=== PATIENT | female | born 1940 | race African-American/Black ===

== ENCOUNTER 2016-12-14 21:19 | Observation (INO) | payer MEDICARE ==
[~2016-12-14 21:19] MED LIST: ASPI81TA82 PO; CILO50TA PO; GLYB5TAB3 PO; LISI-363 PO; METO50TA PO; SIMV1TAB76 PO
[2016-12-14 21:24] VITALS: BP 109/55; PULSE 96; RESP 16; TEMP 96.8; O2SAT 97
--- NOTE | 2016-12-14 21:28 | PD ---
Physical Exam Date Seen by Provider: Dec 14, 2016 Time Seen by Provider: 21:26 Narrative 76 yo female here for evaluation of weakness and abdominal pain. Had a chicken sandwich early today and then developed some discomfort. No N/V. Feeling tired. Passing a lot of gas. No diarrhea. Pain is 8/10. Vitals are stable. Awaiting bed placement. Data Data Last Documented VS Vital Signs Date Time Temp Pulse Resp B/P Pulse Ox O2 Delivery O2 Flow Rate FiO2 12/14/16 21:24 96.8 96 16 109/55 97 Room Air [facility] Medical Record Reviewed: Yes Supervised Visit with TRELL: No Vikash Burr Dec 14, 2016 21:28
[2016-12-14 21:37] VITALS: BP 102/54; PULSE 97; RESP 20; O2SAT 100
[2016-12-14] MEDS ORDERED: ASPI81CH CHEW (21:38)
[2016-12-14] MEDS ORDERED: ZOFR8TAB PO (21:39)
[2016-12-14] MEDS ORDERED: RANI150T PO (21:40)
[2016-12-14] MEDS ORDERED: LIDO1SOL8 SWISH-SWAL (21:40)
[2016-12-14] MEDS ORDERED: GLIM1TAB PO (21:40)
[2016-12-14] MEDS ORDERED: METO50TA PO (21:41)
[2016-12-14] MEDS ORDERED: LISI10TA3 PO (21:41)
[2016-12-14] MEDS ORDERED: OMEG300C (21:41)
[2016-12-14] MEDS ORDERED: SIMV10TA PO (21:41)
[2016-12-14] MEDS ORDERED: SODIUM CHLOR 0.9% 1000 ML INJ 1,000 ML IV SCH (21:42)
[2016-12-14] MEDS ORDERED: DICYCLOMINE HCL 20 MG/2 ML VIAL IM ONE (21:45)
[2016-12-14] MEDS ORDERED: PROCHLORPERAZINE INJ 10 MG/2 ML VIAL IV PUSH ONE (21:45)
[2016-12-14] MEDS ORDERED: SODIUM CHLORIDE 0.9% FLUSH 10 ML FLUSH IV FLUSH PRN (21:45)
--- NOTE | 2016-12-14 22:10 | PD ---
HPI Chief Complaint: Abdominal Pain Time Seen by Provider: 21:35 Travel History International Travel<30 days: No Contact w/Intl Traveler<30days: No Traveled to known affect area: No History of Present Illness HPI Patient is a 76-year-old female presenting to the emergency department evaluation of abdominal pain. Patient states it started this afternoon after she ate chicken salad sandwich and some rotisserie chicken. She states the pain is in her lower abdomen as well as her epigastric region, she states it feels crampy, gassy and bloated. She also reports nausea and has vomited 8-9 times per her report. She reported that she took 2 laxatives prior to coming to the emergency department. She reports burping, she has a past medical history significant for diabetes, hypertension, GERD. Patient was seen and evaluated for healthcare this afternoon, she was diagnosed with gastroenteritis. She was prescribed ranitidine, GI cocktail, Zofran. She came to the emergency department because she has not improved. PFSH Past Medical History Arthritis: Yes Chest Pain: Yes Diabetes: Yes Patient Takes Glucophage: No Diminished Hearing: No GERD: Yes Immunizations Current: Yes Tetanus Vaccination: Unknown Influenza Vaccination: Yes ?: Not Past Surgical History Cholecystectomy: Yes Social History Alcohol Use: Yes (3-4 DRINKS A WEEK) Tobacco Use: No Substance Use: No Allergies-Medications (Allergen,Severity, Reaction): Coded Allergies: Sulfamethoxazole (Verified Allergy, Unknown, 12/14/16) Reported Meds & Prescriptions Reported Meds & Active Scripts Active Reported Simvastatin 10 Mg Tab 10 Mg PO DAILY Metoprolol Tartrate 50 Mg Tab 50 Mg PO DAILY Lisinopril 10 Mg Tab 10 Mg PO DAILY [place]-3 Krill Oil 300 mg (Krill Oil) 1 Cap Cap Glimepiride 1 Mg Tab 1 Mg PO DAILY Take with breakfast or first main meal Lidocaine Viscous Liq 2 % Liqd 5 Ml SWISH-SWAL DIRECTED PRN Ranitidine (Ranitidine HCl) 150 Mg Tab 150 Mg PO DAILY Zofran (Ondansetron HCl) 8 Mg Tab 8 Mg PO TID Aspirin 81 Mg Chew 81 Mg CHEW DAILY Review of Systems Except as stated in HPI: all other systems reviewed are Neg Gastrointestinal: Positive: Nausea, Vomiting, Abdominal Pain, Indigestion Physical Exam Narrative GENERAL: Obese, well-developed, alert female. Appears uncomfortable, in no acute distress. SKIN: Warm and dry. HEAD: Atraumatic. Normocephalic. EYES: Pupils equal and round. No scleral icterus. No injection or drainage. ENT: No nasal bleeding or discharge. Mucous membranes pink and moist. NECK: Trachea midline. No JVD. CARDIOVASCULAR: Regular rate and rhythm. RESPIRATORY: No accessory muscle use. Clear to auscultation. Breath sounds equal bilaterally. GASTROINTESTINAL: Abdomen soft, tender to palpation epigastric and right and left lower quadrants, nondistended. Hepatic and splenic margins not palpable. , No rebound, positive guarding, positive bowel sounds. MUSCULOSKELETAL: Extremities without clubbing, cyanosis, or edema. No obvious deformities. NEUROLOGICAL: Awake and alert. No obvious cranial nerve deficits. Motor grossly within normal limits. Five out of 5 muscle strength in the arms and legs. Normal speech. PSYCHIATRIC: Appropriate mood and affect; insight and judgment normal. Data Data Last Documented VS Vital Signs Date Time Temp Pulse Resp B/P Pulse Ox O2 Delivery O2 Flow Rate FiO2 12/14/16 21:37 97 20 102/54 100 Room Air 12/14/16 21:24 96.8 Orders Complete Blood Count With Diff (12/14/16 21:42) Comprehensive Metabolic Panel (12/14/16 21:42) Lipase (12/14/16 21:42) Lactic Acid (12/14/16 21:42) Ct Abd/Pel W/O Iv Contrast (12/14/16 21:42) Iv Access Insert/Monitor (12/14/16 21:42) Ecg Monitoring (12/14/16 21:42) Oximetry (12/14/16 21:42) NPO (12/14/16 21:42) Sodium Chlor 0.9% 1000 Ml Inj (Ns 1000 M (12/14/16 21:42) Sodium Chloride 0.9% Flush (Ns Flush) (12/14/16 21:45) Dicyclomine Inj (Bentyl Inj) (12/14/16 21:45) Prochlorperazine Inj (Compazine Inj) (12/14/16 21:45) Sodium Chlor 0.9% 1000 Ml Inj (Ns 1000 M (12/14/16 22:45) Ondansetron Inj (Zofran Inj) (12/14/16 23:45) Ondansetron Inj (Zofran Inj) (12/14/16 23:43) Blood Culture (12/14/16 23:44) Ciprofloxacin 400 Mg Premix (Cipro 400 M (12/14/16 23:45) Metronidazole 500 Mg Inj (Flagyl 500 Mg (12/14/16 23:45) Admit Order (Ed Use Only) (12/15/16 00:17) Labs Laboratory Tests Test 12/14/16 12/14/16 21:50 21:58 White Blood Count 12.9 TH/MM3 Red Blood Count 3.85 MIL/MM3 Hemoglobin 11.7 GM/DL Hematocrit 35.2 % Mean Corpuscular Volume 91.4 FL Mean Corpuscular Hemoglobin 30.4 PG Mean Corpuscular Hemoglobin 33.3 % Concent Red Cell Distribution Width 13.9 % Platelet Count 290 TH/MM3 Mean Platelet Volume 9.0 FL Neutrophils (%) (Auto) 76.6 % Lymphocytes (%) (Auto) 15.1 % Monocytes (%) (Auto) 7.8 % Eosinophils (%) (Auto) 0.2 % Basophils (%) (Auto) 0.3 % Neutrophils # (Auto) 9.8 TH/MM3 Lymphocytes # (Auto) 1.9 TH/MM3 Monocytes # (Auto) 1.0 TH/MM3 Eosinophils # (Auto) 0.0 TH/MM3 Basophils # (Auto) 0.0 TH/MM3 CBC Comment DIFF FINAL Differential Comment Sodium Level 137 MEQ/L Potassium Level 3.7 MEQ/L Chloride Level 97 MEQ/L Carbon Dioxide Level 29.6 MEQ/L Anion Gap 10 MEQ/L Blood Urea Nitrogen 34 MG/DL Creatinine 2.35 MG/DL Estimat Glomerular Filtration 24 ML/MIN Rate Random Glucose 203 MG/DL Calcium Level 11.7 MG/DL Protein Corrected Calcium 11.3 MG/DL Total Bilirubin 0.6 MG/DL Aspartate Amino Transf 23 U/L (AST/SGOT) Alanine Aminotransferase 20 U/L (ALT/SGPT) Alkaline Phosphatase 61 U/L Total Protein 7.7 GM/DL Albumin 4.1 GM/DL Lipase 118 U/L Lactic Acid Level 3.5 mmol/L MDM Medical Decision Making Medical Screen Exam Complete: Yes Emergency Medical Condition: Yes Medical Record Reviewed: Yes Interpretation(s) Vital Signs Date Time Temp Pulse Resp B/P Pulse Ox O2 Delivery O2 Flow Rate FiO2 12/14/16 21:37 97 20 102/54 100 Room Air 12/14/16 21:24 96.8 96 16 109/55 97 Room Air Differential Diagnosis Gastroenteritis versus small bowel obstruction versus pancreatitis versus diverticulitis versus other Narrative Course Patient is a 76-year-old female that presented for evaluation abdominal pain, nausea, vomiting that started after eating lunch today. Patient's vital signs are stable, she did vomit once in the emergency department. Emesis was green. Labs and imaging ordered and pending. IV access established. Patient given Protonix, Bentyl, IV fluids, Compazine. CT scan abdomen and pelvis shows scattered air-fluid levels and small bowel, occasional loops of colon with scattered diverticuli throughout the colon. No free air obstruction is seen, no evidence of an inflammatory process. There is trace ascites. Small hiatal hernia.. Calcification in the left breast. CBC with an elevated white count 12.9, likely inflammatory response. Lactic acid 3.5, patient has been given 1 L of IV fluids, a second liter has been ordered. Care of patient transferred to my attending physician at the end of my shift. She will determine patient's disposition. Juliann Salas [facility] Dec 14, 2016 22:10
--- NOTE | 2016-12-14 22:23 | RADRPT ---
EXAM DATE/TIME: 12/14/2016 22:06 [place] COMPARISON: No previous studies available for comparison. INDICATIONS : Lower abdominal pain. ORAL CONTRAST: No oral contrast ingested. RADIATION DOSE: 9.96 CTDIvol (mGy) MEDICAL HISTORY : Diabetes. SURGICAL HISTORY : Cholecystectomy. ENCOUNTER: Initial ACUITY: 1 day PAIN SCALE: 8/10 LOCATION: Bilateral lower quadrant TECHNIQUE: Volumetric scanning of the abdomen and pelvis was performed. Using automated exposure control and ad justment of the mA and/or kV according to patient size, radiation dose was kept as low as reasonably achievable to obtain optimal diagnostic quality images. DICOM format image data is available electro nically for review and comparison. FINDINGS: LOWER LUNGS: The visualized lower lungs are clear. LIVER: Trace ascites is evident with surgical clips in the gallbladder fossa. SPLEEN: Normal size without lesion. PANCREAS: Atrophic without mass KIDNEYS: Normal in size and shape. There is no mass, stone, or hydronephrosis. ADRENAL GLANDS: Within normal limits. VASCULAR: Moderate vascular calcifications are noted. BOWEL/MESENTERY: Small hiatal hernia. There is scattered air-fluid levels throughout both large and small bowel witho ut asymmetrical dilatation. Diverticula are seen throughout the entire length of the colon. ABDOMINAL WALL: Within normal limits. RETROPERITONEUM: There is no lymphadenopathy. BLADDER: No wall thickening or mass. REPRODUCTIVE: Fibroid uterine or noted with artifact from total hip INGUINAL: There is no lymphadenopathy or hernia. MUSCULOSKELETAL: Total hip on the left, degenerative changes on the right. CONCLUSION: Scattered air-fluid levels in small bowel occasional loops of colon with scattered diverticuli throug hout the colon. I don't see free air or obstruction. I don't see evidence for an inflammatory proce ss. Trace ascites is noted. Small hiatal hernia is evident. Calcification seen in the left breast. Mark Evans MD FACR on December 14, 2016 at 22:15 Board Certified Radiologist. This report was verified electronically.
[2016-12-14 22:32] LABS: AUTOMATED NEUTROPHIL # 9.8 TH/MM3 (1.8-7.7); BASOPHIL % 0.3 % (0.0-2.0); EOSINOPHIL % 0.2 % (0.0-4.0); HEMATOCRIT 35.2 % (35.0-46.0); HEMO FLAGS DIFF FINAL; LYMPH % 15.1 % (9.0-44.0); LYMPHOCYTE # 1.9 TH/MM3 (1.0-4.8); MEAN CELL VOLUME 91.4 FL (80.0-100.0); MEAN CORPUSCULAR HEMOGLOBIN 30.4 PG (27.0-34.0); MEAN CORPUSCULAR HGB CONC 33.3 % (32.0-36.0); MONO % 7.8 % (0.0-8.0); NEUT % 76.6 % (16.0-70.0); PLATELET COUNT 290 TH/MM3 (150-450); RED BLOOD COUNT 3.85 MIL/MM3 (4.00-5.30); RED CELL DISTRIBUTION WIDTH 13.9 % (11.6-17.2); WHITE BLOOD COUNT 12.9 TH/MM3 (4.0-11.0)
[2016-12-14] MEDS ORDERED: SODIUM CHLOR 0.9% 1000 ML INJ 1,000 ML IV ONE (22:45)
[2016-12-14 23:00] LABS: BICARBONATE 29.6 MEQ/L (21.0-32.0); CALCIUM-PROTEIN CORRECTED 11.3 MG/DL (8.5-10.1); POTASSIUM 3.7 MEQ/L (3.5-5.1); TOTAL BILIRUBIN ADULT 0.6 MG/DL (0.2-1.0)
[2016-12-14] MEDS ORDERED: ONDANSETRON HCL 4 MG/2 ML VIAL ONE (23:43)
[2016-12-14] MEDS ORDERED: ONDANSETRON HCL 4 MG/2 ML VIAL IV ONE (23:45)
[2016-12-14] MEDS ORDERED: CIPROFLOXACIN 400 MG PREMIX 200 ML IV ONE (23:45)
[2016-12-14] MEDS ORDERED: metroNIDAZOLE 500 MG INJ 100 ML IV ONE (23:45)
[2016-12-15] VITALS (8 sets, daily range): BP systolic 98–171; BP diastolic 51–84; PULSE 77–108; RESP 16–20; TEMP 98.1–100.1; O2SAT 95–100
[2016-12-15] MEDS ORDERED: PANTOPRAZOLE SODIUM 40 MG VIAL IV PUSH ONE (01:30)
--- NOTE | 2016-12-15 05:04 | PD ---
Data Data Last Documented VS Vital Signs Date Time Temp Pulse Resp B/P Pulse Ox O2 Delivery O2 Flow Rate FiO2 12/14/16 21:37 97 20 102/54 100 Room Air 12/14/16 21:24 96.8 Orders Complete Blood Count With Diff (12/14/16 21:42) Comprehensive Metabolic Panel (12/14/16 21:42) Lipase (12/14/16 21:42) Lactic Acid (12/14/16 21:42) Ct Abd/Pel W/O Iv Contrast (12/14/16 21:42) Iv Access Insert/Monitor (12/14/16 21:42) Ecg Monitoring (12/14/16 21:42) Oximetry (12/14/16 21:42) NPO (12/14/16 21:42) Sodium Chlor 0.9% 1000 Ml Inj (Ns 1000 M (12/14/16 21:42) Sodium Chloride 0.9% Flush (Ns Flush) (12/14/16 21:45) Dicyclomine Inj (Bentyl Inj) (12/14/16 21:45) Prochlorperazine Inj (Compazine Inj) (12/14/16 21:45) Sodium Chlor 0.9% 1000 Ml Inj (Ns 1000 M (12/14/16 22:45) Ondansetron Inj (Zofran Inj) (12/14/16 23:45) Ondansetron Inj (Zofran Inj) (12/14/16 23:43) Blood Culture (12/14/16 23:44) Ciprofloxacin 400 Mg Premix (Cipro 400 M (12/14/16 23:45) Metronidazole 500 Mg Inj (Flagyl 500 Mg (12/14/16 23:45) Admit Order (Ed Use Only) (12/15/16 00:17) Labs Laboratory Tests Test 12/14/16 12/14/16 21:50 21:58 White Blood Count 12.9 TH/MM3 Red Blood Count 3.85 MIL/MM3 Hemoglobin 11.7 GM/DL Hematocrit 35.2 % Mean Corpuscular Volume 91.4 FL Mean Corpuscular Hemoglobin 30.4 PG Mean Corpuscular Hemoglobin 33.3 % Concent Red Cell Distribution Width 13.9 % Platelet Count 290 TH/MM3 Mean Platelet Volume 9.0 FL Neutrophils (%) (Auto) 76.6 % Lymphocytes (%) (Auto) 15.1 % Monocytes (%) (Auto) 7.8 % Eosinophils (%) (Auto) 0.2 % Basophils (%) (Auto) 0.3 % Neutrophils # (Auto) 9.8 TH/MM3 Lymphocytes # (Auto) 1.9 TH/MM3 Monocytes # (Auto) 1.0 TH/MM3 Eosinophils # (Auto) 0.0 TH/MM3 Basophils # (Auto) 0.0 TH/MM3 CBC Comment DIFF FINAL Differential Comment Sodium Level 137 MEQ/L Potassium Level 3.7 MEQ/L Chloride Level 97 MEQ/L Carbon Dioxide Level 29.6 MEQ/L Anion Gap 10 MEQ/L Blood Urea Nitrogen 34 MG/DL Creatinine 2.35 MG/DL Estimat Glomerular Filtration 24 ML/MIN Rate Random Glucose 203 MG/DL Calcium Level 11.7 MG/DL Protein Corrected Calcium 11.3 MG/DL Total Bilirubin 0.6 MG/DL Aspartate Amino Transf 23 U/L (AST/SGOT) Alanine Aminotransferase 20 U/L (ALT/SGPT) Alkaline Phosphatase 61 U/L Total Protein 7.7 GM/DL Albumin 4.1 GM/DL Lipase 118 U/L Lactic Acid Level 3.5 mmol/L MDM Supervised Visit with TRELL: Yes Narrative Course The history, exam, and medical decision-making in the associated midlevel provider note were completed with my assistance. I reviewed and agree with the findings presented. I attest that I had a [id number] encounter with the patient on the same day, and personally performed and documented my assessment and findings in the medical record. *My assessment and Findings: This is a 76-year-old female who presents to the emergency department with nausea vomiting and diarrhea. Here in the emergency department she had several episodes of vomiting despite Compazine and Zofran. She is placed on a monitor and an IV was established. Labs demonstrate a mild leukocytosis. Patient has evidence of acute kidney injury with a lactic acid of 3.5. She was given a dose of ciprofloxacin and Flagyl in the setting of possible sepsis. CT abdomen and pelvis was obtained which demonstrates air fluid levels in the small bowel. Patient will be admitted in the setting of likely gastroenteritis and dehydration with acute kidney injury. Diagnosis Primary Impression: Acute kidney injury Admitting Information Admitting Physician Requests: Admit Lorri Givens MD Dec 15, 2016 05:04
[2016-12-15] MEDS ORDERED: MORPHINE SULFATE 4 MG/ML INJ IV PUSH ONE (06:00)
[2016-12-15] MEDS ORDERED: MORPHINE SULFATE 8 MG/ML INJ ONE (06:05)
[2016-12-15] MEDS ORDERED: MORPHINE SULFATE 8 MG/ML INJ IV PUSH ONE (06:45)
[2016-12-15] MEDS ORDERED: ONDANSETRON HCL 4 MG/2 ML VIAL IV PUSH PRN (11:45)
[2016-12-15] MEDS: SODIUM CHLOR 0.9% 1000 ML INJ 1,000 ML IV SCH (13:32)
--- NOTE | 2016-12-15 15:51 | HHI.HP ---
HPI Service CP Hospitalists Primary Care Physician Matt Dover Admission Diagnosis gastroenteritis Chief Complaint: abd cramps vomiting Travel History International Travel<30 Days: No Contact w/Intl Traveler <30 Da: No Traveled to Known Affected Are: No History of Present Illness Pt with ckd 3 presented with abdomen cramps and vomiting soon after eating chicken salad. She was having persistent sx's and admitted for observation. CT imaging revealed some changes consistent with gasteroenteritis. When I saw her she was already improving and contemplated going home at this time. She and decided to be observed overnight then f/u with pcp. Review of Systems Other abd cramps vomiting Past Family Social History Past Medical History ckd3 hyperlipidemia htn dm 2 diverticulosis/ diverticulitis hx bowel resection/ostomy then takedown cholecystectomy Reported Medications Simvastatin 10 Mg Tab 10 Mg PO DAILY Metoprolol Tartrate 50 Mg Tab 50 Mg PO DAILY Lisinopril 10 Mg Tab 10 Mg PO DAILY [place]-3 Krill Oil 300 mg (Krill Oil) 1 Cap Cap Glimepiride 1 Mg Tab 1 Mg PO DAILY Take with breakfast or first main meal Lidocaine Viscous Liq 2 % Liqd 5 Ml SWISH-SWAL DIRECTED PRN Ranitidine (Ranitidine HCl) 150 Mg Tab 150 Mg PO DAILY Aspirin 81 Mg Chew 81 Mg CHEW DAILY Allergies: Coded Allergies: Sulfamethoxazole (Verified Allergy, Unknown, 12/14/16) Family History nc Social History no etoh/tob Physical Exam Vital Signs nad heart reg lung cta abd s/nt/nabs ext no edema Vital Signs Date Time Temp Pulse Resp B/P Pulse Ox O2 Delivery O2 Flow Rate FiO2 12/15/16 15:37 98.5 104 18 118/58 96 12/15/16 12:02 100.1 105 18 116/58 95 12/15/16 10:44 108 20 171/84 12/15/16 06:00 83 16 126/71 98 Room Air 12/15/16 02:25 16 12/15/16 02:25 85 16 132/72 100 Room Air 12/14/16 21:37 97 20 102/54 100 Room Air 12/14/16 21:24 96.8 96 16 109/55 97 Room Air Laboratory Laboratory Tests Test 12/14/16 12/14/16 12/15/16 21:50 21:58 11:30 White Blood Count 12.9 Red Blood Count 3.85 Hemoglobin 11.7 Hematocrit 35.2 Mean Corpuscular Volume 91.4 Mean Corpuscular Hemoglobin 30.4 Mean Corpuscular Hemoglobin 33.3 Concent Red Cell Distribution Width 13.9 Platelet Count 290 Mean Platelet Volume 9.0 Neutrophils (%) (Auto) 76.6 Lymphocytes (%) (Auto) 15.1 Monocytes (%) (Auto) 7.8 Eosinophils (%) (Auto) 0.2 Basophils (%) (Auto) 0.3 Neutrophils # (Auto) 9.8 Lymphocytes # (Auto) 1.9 Monocytes # (Auto) 1.0 Eosinophils # (Auto) 0.0 Basophils # (Auto) 0.0 CBC Comment DIFF FINAL Differential Comment Sodium Level 137 Potassium Level 3.7 Chloride Level 97 Carbon Dioxide Level 29.6 Anion Gap 10 Blood Urea Nitrogen 34 Creatinine 2.35 Estimat Glomerular Filtration 24 Rate Random Glucose 203 Calcium Level 11.7 Protein Corrected Calcium 11.3 Total Bilirubin 0.6 Aspartate Amino Transf 23 (AST/SGOT) Alanine Aminotransferase 20 (ALT/SGPT) Alkaline Phosphatase 61 Total Protein 7.7 Albumin 4.1 Lipase 118 Lactic Acid Level 3.5 2.9 Date/Time Procedure Status Source Growth 12/15/16 01:25 Aerobic Blood Culture Received Blood Peripheral Pending 12/15/16 01:25 Anaerobic Blood Culture Received Blood Peripheral Pending Result Diagram: 12/14/16214912/14/162149 Assessment and Plan Problem List: (1) Gastroenteritis Status: Acute Plan: Pt presented with acute abdomen cramps and vomiting. Started after eating chicken salad. Her sx's are improving and felt most likely to be gastroenteritis and some dehydration She is already improving but decided to stay for observation overnight. cont ivf advance diet d/c with prn zofran in AM and pcp f/u (2) CKD (chronic kidney disease), stage III Status: Chronic (3) HTN (hypertension) Status: Chronic (4) DM2 (diabetes mellitus, type 2) Status: Chronic Martell Black MD Dec 15, 2016 15:51
[2016-12-15 17:23] LABS: ALT (GPT) 17 U/L (10-53); ANION GAP 13 MEQ/L (5-15); AST (GOT) 20 U/L (15-37); BICARBONATE 27.6 MEQ/L (21.0-32.0); BLOOD UREA NITROGEN 28 MG/DL (7-18); CHLORIDE 102 MEQ/L (98-107); GLOMERULAR FILTRATION RATE 28 ML/MIN (>89); POTASSIUM 4.3 MEQ/L (3.5-5.1); SODIUM (NA) 143 MEQ/L (136-145)
[2016-12-15 17:30] LABS: ALKALINE PHOSPHATASE 48 U/L (45-117); TOTAL BILIRUBIN ADULT 0.5 MG/DL (0.2-1.0)
[2016-12-15] MEDS: MORPHINE SULFATE 8 MG/ML INJ IV PUSH PRN (20:55)
[2016-12-16] MEDS: SODIUM CHLOR 0.9% 1000 ML INJ 1,000 ML IV SCH (03:47)
[2016-12-16 04:06] VITALS: BP 102/52; PULSE 99; RESP 18; TEMP 98.1; O2SAT 92
[2016-12-16 07:32] LABS: BASOPHIL % 0.2 % (0.0-2.0); EOSINOPHIL % 0.1 % (0.0-4.0); HEMATOCRIT 29.7 % (35.0-46.0); HEMO FLAGS DIFF FINAL; LYMPHOCYTE # 1.3 TH/MM3 (1.0-4.8); MEAN CELL VOLUME 93.5 FL (80.0-100.0); MEAN CORPUSCULAR HEMOGLOBIN 30.4 PG (27.0-34.0); MEAN CORPUSCULAR HGB CONC 32.5 % (32.0-36.0); MONO % 10.5 % (0.0-8.0); NEUT % 73.2 % (16.0-70.0); PLATELET COUNT 218 TH/MM3 (150-450); RED BLOOD COUNT 3.17 MIL/MM3 (4.00-5.30); RED CELL DISTRIBUTION WIDTH 14.2 % (11.6-17.2); WHITE BLOOD COUNT 8.3 TH/MM3 (4.0-11.0)
[2016-12-16 07:40] VITALS: BP 111/53; PULSE 97; RESP 18; TEMP 98.2; O2SAT 93
[2016-12-16 07:56] LABS: BICARBONATE 28.8 MEQ/L (21.0-32.0); POTASSIUM 3.5 MEQ/L (3.5-5.1)
[2016-12-16] MEDS: MORPHINE SULFATE 8 MG/ML INJ IV PUSH PRN (10:44)
[2016-12-16 11:21] VITALS: BP 136/60; PULSE 97; RESP 18; TEMP 98.9; O2SAT 94
--- NOTE | 2016-12-16 14:41 | HHI.DCPOC ---
Discharge Care Plan Diagnosis: (1) Gastroenteritis Goals to Promote Your Health * To prevent worsening of your condition and complications * To maintain your health at the optimal level Directions to Meet Your Goals Take your medications as prescribed Follow your dietary instruction Follow activity as directed Keep your appointments as scheduled Take your immunizations and boosters as scheduled If your symptoms worsen call your PCP, if no PCP go to Urgent Care Center or Emergency Room Smoking is Dangerous to Your Health. Avoid second hand smoke Call the 24-hour hour crisis hotline for domestic abuse at Martell Black MD Dec 16, 2016 14:41
--- NOTE | 2016-12-16 14:41 | HHI.PR ---
Subjective Remarks vomited early this AM but wants to go home now. feels better Objective Vitals heart reg lung cta abd s/nt ext no edema Vital Signs Date Time Temp Pulse Resp B/P Pulse Ox O2 Delivery O2 Flow Rate FiO2 12/16/16 11:21 98.9 97 18 136/60 94 12/16/16 07:40 98.2 97 18 111/53 93 12/16/16 04:06 98.1 99 18 102/52 92 12/15/16 23:36 98.1 77 18 103/54 98 12/15/16 21:00 20 12/15/16 20:40 111/56 12/15/16 19:28 98.1 104 20 113/57 95 12/15/16 15:37 98.5 104 18 118/58 96 12/15/16 12/15/16 12/16/16 14:59 22:59 06:59 Intake Total 168 ml 1600 ml Output Total 150 ml Balance 168 ml 1450 ml Intake Oral 650 ml IV Total 168 ml 950 ml Output Emesis 150 ml # Voids 1 Result Diagram: 12/16/16 0640 12/16/16 0640 A/P Problem List: (1) Gastroenteritis Status: Acute Plan: acute gastroenteritis improving Pt eager for d/c she was instructed to drink plenty of fluids and f/u closely with pcp should her sx's return prn zofran given (2) HTN (hypertension) Status: Chronic (3) CKD (chronic kidney disease), stage III Status: Chronic (4) DM2 (diabetes mellitus, type 2) Status: Chronic Martell Black MD Dec 16, 2016 14:41
[2016-12-16] MEDS ORDERED: ZOFR4TAB3 SL (14:42)
== END 2016-12-16 16:31 | disposition home or self-care (01) ==
LOC: NEPE 21:19 → NEDA 12-15 00:18 → INTOOBSV 12-15 00:18 → NEDH 12-15 04:36 → NEPFCDU 12-15 11:37
PROVIDERS: ADMIT Hospitalist; ATTEND Hospitalist
DX: K52.9 Noninfective gastroenteritis and colitis, unspecified (principal); N17.9 Acute kidney failure, unspecified; E86.0 Dehydration; K44.9 Diaphragmatic hernia without obstruction or gangrene; I12.9 Hypertensive chronic kidney disease with stage 1 through stage 4 chronic kidney disease, or unspecified chronic kidney disease; N18.6 End stage renal disease; E11.22 Type 2 diabetes mellitus with diabetic chronic kidney disease; E78.5 Hyperlipidemia, unspecified; K21.9 Gastro-esophageal reflux disease without esophagitis; M19.90 Unspecified osteoarthritis, unspecified site; Z79.899 Other long term (current) drug therapy; Z79.82 Long term (current) use of aspirin
CPT/HCPCS: 74176; 80048; 80053; 83605; 83690; 85025; 87040; 96361; 96372; 96374; 96375; 99285; C9113; G0378; J0500; J0744; J0780; J2270; J2405; J7030